=== PATIENT | female | born 1970 | race Two or more races ===

== ENCOUNTER 2020-06-20 11:03 | Emergency (ER) | payer OTHER ==
[~2020-06-20] VITALS: Ht 160 cm; Wt 79.4 kg
[2020-06-20 11:50] VITALS: BP 107/71
[2020-06-20] MEDS ORDERED: KETOROLAC TROMETH 60MG/2ML VIAL IM ONE (12:00)
== END 2020-06-20 12:26 | disposition home or self-care (01) ==
LOC: ER 11:03
DX: S46.912A Strain of unspecified muscle, fascia and tendon at shoulder and upper arm level, left arm, initial encounter (principal); S63.602A Unspecified sprain of left thumb, initial encounter; R51 Headache; V43.52XA Car driver injured in collision with other type car in traffic accident, initial encounter; Y93.I9 Activity, other involving external motion; Y92.410 Unspecified street and highway as the place of occurrence of the external cause; Y99.8 Other external cause status
CPT/HCPCS: 70450; 73030; 73130; 96372; 99284; J1885

== ENCOUNTER 2025-08-08 16:55 | Emergency (ER) | payer MEDICAID, OTHER ==
[~2025-08-08] VITALS: Ht 160 cm; Wt 79.0 kg
[2025-08-08] MEDS ORDERED: CLIN1CAP70 PO (20:14)
[2025-08-08] MEDS ORDERED: ACET500T58 PO (20:14)
--- NOTE | 2025-08-08 20:14 | ED.PDOC ---
Eye-HPI HPI Comments 54-year-old female presents to ER with complaints of toothache x2 days. Patient reports that she has been experiencing right lower toothache x2 days with associated right lower facial swelling x1 day. She rates her current pain a 09/07. Denies use of medications for current symptoms and states she does have a follow up appointment with a dentist next Wednesday. Denies fever, headache, nausea/vomiting, body aches, chills or any further symptoms/complaints Chief Complaint: Tooth Pain Time Seen by MD: 18:08 Primary Care Provider: UNKNOWN Reviewed Notes: Nurses Notes, Medications, Allergies Allergies: Coded Allergies: NO KNOWN ALLERGIES (Unverified , 06/20/20) Home Meds Active Scripts Acetaminophen (Acetaminophen) 500 Mg Tab, 500 MG PO Q4HPRN, #30 TAB 0 Refills Prov:CONNER TAPIA 08/08/25 Clindamycin Hcl (Clindamycin Hcl) 300 Mg Cap, 300 MG PO QID for 7 Days, #28 CAP 0 Refills Prov:CONNER TAPIA 08/08/25 Information Source: Patient Mode of Arrival: Ambulatory Past Medical History PAST MEDICAL HISTORY: Denies Surgical History: Denies all surgeries ADVERTISING AGENT History: Denies all ADVERTISING AGENT Hx Family History Family History: Unknown Social History Smoker: Non-Smoker Alcohol: Denies ETOH Use Drugs: Denies Drug Use Lives In: Home Constitutional: denies: chills, diaphoresis, fatigue, fever, malaise, sweats, weakness, others EENTM: reports: others (As stated in HPI) Respiratory: denies: cough, hemoptysis, orthopnea, SOB at rest, shortness of breath, SOB with excertion, stridor, wheezing, others Cardiovascular: denies: chest pain, dizzy spells, diaphoresis, Dyspnea on exertion, edema, irregular heart beat, left arm pain, lightheadedness, palpitations, PND, syncope, others Gastrointestinal: denies: abdomen distended, abdominal pain, blood streaked bowels, constipated, diarrhea, dysphagia, difficulty swallowing, hematemesis, melena, nausea, poor appetite, poor fluid intake, rectal bleeding, rectal pain, vomiting, others Genitourinary: denies: abnormal vagina bleeding, burning, dyspareunia, dysuria, flank pain, frequency, hematuria, incontinence, pain, , vagina discharge, urgency, others Neurological: denies: dizziness, fainting, headache, left sided numbness, left sided weakness, numbness, paresthesia, pre-existing deficit, right sided numbness, right sided weakness, seizure, speech problems, tingling, tremors, weakness, others Musculoskeletal: denies: back pain, gout, joint pain, joint swelling, muscle pain, muscle stiffness, neck pain, others Integumetry: denies: bruises, change in color, change in hair/nails, dryness, laceration, lesions, lumps, rash, wounds, others Allergic/Immunocompromised: denies: Difficulty Healing, Frequent Infections, Hives, Itching, others Hematologic/Lymphatic: denies: anemia, blood clots, easy bleeding, easy bruising, swollen glands, others Endocrine: denies: excessive hunger, excessive sweating, excessive thirst, excessive urination, flushing, intolerance to cold, intolerance to heat, unexplained weight gain, unexplained weight loss, others Psychiatric: denies: anxiety, bipolar disorder, depression, hopeless, panic disorder, schizophrenia, sleepless, suicidal, others Physical Exam General Appearance: No Apparent Distress HEENT: PERRL/EOMI, Pharynx Normal, TMs Normal, Other (Mild swelling/erythema noted surrounding gums of right lower 1st molar tooth without bleeding/drainage. Mild right-sided facial swelling also appreciated. No further skin changes noted) Neck: Full Range of Motion, Non-Tender, Normal Respiratory: Chest Non-Tender, Lungs Clear, No Accessory Muscle Use, No Respiratory Distress, Normal Breath Sounds Cardiovascular: No Murmur, No Gallop, Regular Rate/Rhythm Breast Exam: Deferred Gastrointestinal: NOT DONE Genitalia: Deferred Pelvic: Deferred Rectal: Deferred Extremities: Normal capillary refill, Normal range of motion Neurologic: Alert, customer care assistant II-XII nml as Tested, No Motor Deficits, Normal Affect, Normal Mood, No Sensory Deficits Cerebellar Function: Normal Reflexes: Normal Skin: Dry, Normal Color, Warm Lymphatic: No Adenopathy Was a procedure done? Was a procedure done?: No Sedation Sedation?: No EENT DIFF Eye: N/A Mouth: Thrush, Other (Fractured tooth, Ric's angina, dental abscess) X-Ray, Labs, Meds, VS Vital Signs Date Time Temp Pulse Resp B/P (MAP) Pulse Ox O2 Delivery O2 Flow Rate FiO2 9/10/25 22:55 99.5 95 18 126/79 (95) 96 99.5 08/08/25 16:56 98.6 105 18 150/92 96 98.6 Current Medications Medications (Trade) Dose Ordered Sig/Shin Route Start Time Stop Time Status Last Admin Clindamycin Phosphate 50 ml @ 50 mls/hr ONCE ONCE IV 08/08/25 20:15 08/08/25 21:14 DC 08/08/25 21:58 Benzocaine (Hurricaine [place]) 1 spr ONCE ONCE MT 08/08/25 20:15 08/08/25 20:16 DC 08/08/25 20:41 Ketorolac Tromethamine (Toradol Injection) 30 mg ONCE ONCE IV 08/08/25 20:30 08/08/25 20:31 DC 08/08/25 21:16 Methylprednisolone Sodium Succinate (Solu Medrol) 125 mg ONCE ONCE IV 08/08/25 20:30 08/08/25 20:31 DC 08/08/25 21:17 Ceftriaxone Sodium 50 ml @ 100 mls/hr ONCE ONCE IV 08/08/25 20:30 08/08/25 20:59 DC 08/08/25 21:24 Hep-lock IV ordered Clindamycin 900 mg IV ordered Rocephin 1 g IV ordered Solu-Medrol 125 mg IV ordered Toradol 30 mg IV ordered Hurricane spray ordered-patient educated on proper use/dosage Patient had improvement in symptoms, well appearing and in no distress prior to discharge Advised to follow up with PCP and dentist in 1-2 days Patient verbalized understanding and agreeable with current plan of care Advised to return to ER immediately if symptoms worsen Time of 1ST Reevaluation: 19:54 Reevaluation 1ST: N/A Time of 2ND Reevaluation: 23:02 Reevaluation 2ND: Improved Patient Education/Counseling: Diagnosis, Treatment, Prognosis, Need For Follow Up Family Education/Counseling: No Family Present SEPSIS Sepsis Screen Date sepsis recognized/suspect: Aug 08, 2025 Time Sepsis recognized/suspect: 1656 Recent Procedure: No On Antibiotic Therapy: No Respiratory Rate >20: No Heart Rate >90: Yes Temp<36 C (96.8 F) or >38.3 C: No SBP <90 or MAP <65 mmHG: No New Acute Mental Status Change: No Is the patient on CPAP, BIPAP,: No Physician Orders Heplock Iv (08/08/25 ) Vital Signs Date Time Temp Pulse Resp B/P (MAP) Pulse Ox O2 Delivery O2 Flow Rate FiO2 08/08/25 22:55 99.5 95 18 126/79 (95) 96 99.5 08/08/25 16:56 98.6 105 18 150/92 96 98.6 Medications Medications Dose Ordered Sig/Shin Route Start Time Stop Time Status Last Admin Dose Admin Benzocaine 1 spr ONCE ONCE MT 08/08/25 20:15 08/08/25 20:16 DC 08/08/25 20:41 Ceftriaxone Sodium 50 ml @ 100 mls/hr ONCE ONCE IV 08/08/25 20:30 08/08/25 20:59 DC 08/08/25 21:24 Clindamycin Phosphate 50 ml @ 50 mls/hr ONCE ONCE IV 08/08/25 20:15 08/08/25 21:14 DC 08/08/25 21:58 Ketorolac Tromethamine 30 mg ONCE ONCE IV 08/08/25 20:30 08/08/25 20:31 DC 08/08/25 21:16 Methylprednisolone Sodium Succinate 125 mg ONCE ONCE IV 08/08/25 20:30 08/08/25 20:31 DC 08/08/25 21:17 Departure 1 Departure Time of Disposition: 23:04 Impression: Primary Impression: Dental infection Disposition: HOME / SELF CARE / HOMELESS Condition: Stable e-Prescriptions Acetaminophen (Acetaminophen) 500 Mg Tab 500 MG PO Q4HPRN, #30 TAB 0 Refills Prov: CONNER TAPIA 08/08/25 Clindamycin Hcl (Clindamycin Hcl) 300 Mg Cap 300 MG PO QID for 7 Days, #28 CAP 0 Refills Prov: CONNER TAPIA 08/08/25 Discharged With: Self Critical Care Note Critical Care Time?: No Stability Stability form required: No Heart Score Heart Score: Heart Score Response (Comments) Value History N/A 0 EKG N/A 0 Age N/A 0 Risk Factors N/A 0 Troponin N/A 0 Total 0 CONNER TAPIA Aug 08, 2025 20:14
[2025-08-08] MEDS ORDERED: methylPREDNISolone SOD SUCC 125 MG/2 ML VL IM ONE (20:15)
[2025-08-08] MEDS ORDERED: cefTRIAXone SOD 1,000 MG VL IM ONE (20:15)
[2025-08-08] MEDS ORDERED: KETOROLAC TROMETH 60MG/2ML VIAL IM ONE (20:15)
[2025-08-08] MEDS: BENZOCAINE (DENTAL) 20 % SPRAY 60ML MT ONE (20:41)
[2025-08-08] MEDS: KETOROLAC TROMETH 30 MG/ML 1ML VIAL IV ONE (21:16)
[2025-08-08] MEDS: methylPREDNISolone SOD SUCC 125 MG/2 ML VL IV ONE (21:17)
[2025-08-08] MEDS: CLINDAMYCIN 900MG IV 50 ML IV ONE (21:58)
[2025-08-08 22:45] VITALS: RESP 16; O2SAT 96
[2025-08-08 22:55] VITALS: BP 126/79; PULSE 95; RESP 18; TEMP 99.5; O2SAT 96
== END 2025-08-08 23:05 | disposition home or self-care (01) ==
LOC: ER 17:02
DX: K04.7 Periapical abscess without sinus (principal); Z79.899 Other long term (current) drug therapy
CPT/HCPCS: 96365; 96368; 96375; 99284; J0696; J1885; J2919; J3490